=== PATIENT | male | born 1935 | race Caucasian/White ===

== ENCOUNTER 2018-06-27 13:23 | Emergency (ER) | payer MEDICARE, OTHER ==
[2018-06-27] MEDS ORDERED: BABY ASPIRIN 81 MG CHEW PO ONE (13:28)
--- NOTE | 2018-06-27 13:33 | ERPHSYRPT ---
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, relieved by SL Ntg, + nausea but no emesis, no injury Aspirin Treatment Today: 81 mg x 4, provided by ED Allergies/Adverse Reactions: Sulfa (Sulfonamide Antibiotics) Allergy (Mild, Verified 06/27/18 13:54) large hives Penicillins Adverse Reaction (Intermediate, Verified 06/27/18 13:55) Home Medications: Aspirin EC 81 mg [Ecotrin 81 mg] 81 mg PO DAILY 04/08/13 [History] Enalapril Maleate 10 mg [Vasotec 10 MG] 10 mg PO DAILY 04/08/13 [History] Ferrous Sulfate [Iron] 27 mg PO DAILY 04/08/13 [History] Simvastatin 10 mg [Zocor 10MG] 10 mg PO DAILY 04/08/13 [History] Apixaban [Eliquis] 5 mg PO 06/27/18 [History] - Review of Systems Constitutional: No Fever Eyes: No Vision Changes Ears, Nose, & Throat: No Nose Congestion Respiratory: No Dyspnea Cardiac: Chest Pain, Palpitations Abdominal/Gastrointestinal: Nausea, No Abdominal Pain Genitourinary Symptoms: No Dysuria Musculoskeletal: No Back Pain Skin: No Rash Neurological: No Focal Weakness - Past Medical History Pertinent Past Medical History: Yes Neurological History: No Pertinent History ENT History: Cataracts Cardiac History: Coronary Artery Disease, High Cholesterol, Hypertension, Other Respiratory History: No Pertinent History Endocrine Medical History: No Pertinent History Musculoskeletal History: Arthritis GI Medical History: Diverticulitis, Diverticulosis, Gallbladder Disease, Other History: No Pertinent History Psycho-Social History: No Pertinent History Male Reproductive Disorders: No Pertinent History Other Medical History: hiatal hernia. anemia - Past Surgical History Past Surgical History: Yes Neuro Surgical History: No Pertinent History Cardiac: Angioplasty, CABG, Cardiac Catheterization Respiratory: No Pertinent History Gastrointestinal: Appendectomy, Colon Resection Genitourinary: No Pertinent History Musculoskeletal: Orthopedic Surgery Male Surgical History: No Pertinent History Other Surgical History: right foot repair- crushed. Back surgery- lower lumbar - calcium deposits removed - Social History Smoking Status: Never smoker Exposure to second hand smoke: No Drug Use: none - Nursing Vital Signs Nursing Vital Signs: Initial Vital Signs Temperature 98 F 06/27/18 13:24 Pulse Rate 63 06/27/18 13:24 Respiratory Rate 18 06/27/18 13:24 Blood Pressure 140/63 06/27/18 13:24 O2 Sat by Pulse Oximetry 100 06/27/18 13:24 Pain Scale Pain Intensity 0 - Physical Exam General Appearance: no apparent distress Eye Exam: eyes nml inspection Ears, Nose, Throat Exam: moist mucous membranes Neck Exam: normal inspection Respiratory Exam: normal breath sounds Cardiovascular Exam: regular rate/rhythm Gastrointestinal/Abdomen Exam: soft, No tenderness Extremity Exam: normal range of motion, pelvis stable Neurologic Exam: alert, oriented x 3, cooperative Skin Exam: normal color, warm, dry - Course Nursing assessment & vital signs reviewed: Yes EKG Interpreted by Me: Other (atrial fib 57 no stemi) - Radiology Exams Chest X-ray Interpretation: Discussed w/ radiologist, Other (atelect or early infil) Ordered Tests: Active Orders 24 hr Category Date Time Status Pneumatic Hoist Operator STAT Care 06/27/18 13:28 Active EKG-ER Only STAT Care 06/27/18 13:28 Active IV Insertion STAT Care 06/27/18 13:28 Active Pulse Oximetry (ED) STAT Care 06/27/18 13:28 Active Regular Diet Diet 06/27/18 Dinner Active CHEST 1 VIEW (PORTABLE) Stat Exams 06/27/18 13:28 Completed CBC W DIFF Stat Lab 06/27/18 13:50 Completed CMP Stat Lab 06/27/18 13:50 Completed D-DIMER QUANTITATION Stat Lab 06/27/18 13:50 Completed PROTIME WITH INR Stat Lab 06/27/18 13:50 Completed TROPONIN Q3H Lab 06/27/18 13:50 Completed TROPONIN Q3H Lab 06/27/18 16:40 Completed TROPONIN Q3H Lab 06/27/18 19:30 Ordered TROPONIN Q3H Lab 06/27/18 22:30 Ordered TROPONIN Q3H Lab 06/28/18 01:30 Ordered Medication Summary Discontinued Medications Generic Name Dose Route Start Last Admin Trade Name Freq PRN Reason Stop Dose Admin Aspirin 324 mg 06/27/18 13:28 06/27/18 13:51 Baby Aspirin 81 Mg Chew PO 06/27/18 13:29 243 mg STAT ONE Administration Lab/Rad Data: Laboratory Result Diagrams 06/27/18 13:50 06/27/18 13:50 Laboratory Results 06/27/18 06/27/18 06/27/18 Range/Units 16:40 13:50 13:50 WBC (4.0-10.5) K/mm3 RBC (4.1-5.6) M/mm3 Hgb (12.5-18.0) gm/dl Hct (42-50) % MCV (78-100) fl MCH (26-32) pg MCHC (32-36) g/dl RDW (11.5-14.0) % Plt Count (150-450) K/mm3 MPV (6-9.5) fl Gran % (36.0-66.0) % Eos # (Auto) (0-0.5) Absolute Lymphs (auto) (1.0-4.6) Absolute Monos (auto) (0.0-1.3) Lymphocytes % (24.0-44.0) % Monocytes % (0.0-12.0) % Eosinophils % (0.00-5.0) % Basophils % (0.0-0.4) % Absolute Granulocytes (1.4-6.9) Basophils # (0-0.4) PT 21.5 H (8.83-12.87) SECONDS INR 1.84 (0.8-3.0) D-Dimer < 215 L (215-500) ng/mL Sodium (137-145) mmol/L Potassium (3.5-5.1) mmol/L Chloride (98-107) mmol/L Carbon Dioxide (22-30) mmol/L Anion Gap (5-15) MEQ/L BUN (9-20) mg/dL Creatinine (0.66-1.25) mg/dL Estimated GFR ML/MIN Glucose (74-106) mg/dL Calcium (8.4-10.2) mg/dL Total Bilirubin (0.2-1.3) mg/dL AST (17-59) U/L ALT (0-50) U/L Alkaline Phosphatase (38-126) U/L Troponin I < 0.012 < 0.012 (0.000-0.034) ng/mL Serum Total Protein (6.3-8.2) g/dL Albumin (3.5-5.0) g/dL 11/16/18 11/16/18 Range/Units 13:50 13:50 WBC 6.4 (4.0-10.5) K/mm3 RBC 4.13 (4.1-5.6) M/mm3 Hgb 12.2 L (12.5-18.0) gm/dl Hct 38.3 L (42-50) % MCV 92.7 (78-100) fl MCH 29.5 (26-32) pg MCHC 31.9 L (32-36) g/dl RDW 14.6 H (11.5-14.0) % Plt Count 180 (150-450) K/mm3 MPV 10.2 H (6-9.5) fl Gran % 72.6 H (36.0-66.0) % Eos # (Auto) 0.17 (0-0.5) Absolute Lymphs (auto) 1.05 (1.0-4.6) Absolute Monos (auto) 0.53 (0.0-1.3) Lymphocytes % 16.3 L (24.0-44.0) % Monocytes % 8.2 (0.0-12.0) % Eosinophils % 2.6 (0.00-5.0) % Basophils % 0.3 (0.0-0.4) % Absolute Granulocytes 4.67 (1.4-6.9) Basophils # 0.02 (0-0.4) PT (8.83-12.87) SECONDS INR (0.8-3.0) D-Dimer (215-500) ng/mL Sodium 139 (137-145) mmol/L Potassium 4.1 (3.5-5.1) mmol/L Chloride 102 (98-107) mmol/L Carbon Dioxide 30 (22-30) mmol/L Anion Gap 11.9 (5-15) MEQ/L BUN 21 H (9-20) mg/dL Creatinine 0.82 (0.66-1.25) mg/dL Estimated GFR > 60.0 ML/MIN Glucose 91 (74-106) mg/dL Calcium 9.2 (8.4-10.2) mg/dL Total Bilirubin 0.70 (0.2-1.3) mg/dL AST 25 (17-59) U/L ALT 14 (0-50) U/L Alkaline Phosphatase 56 (38-126) U/L Troponin I (0.000-0.034) ng/mL Serum Total Protein 7.1 (6.3-8.2) g/dL Albumin 4.0 (3.5-5.0) g/dL - Progress Progress: improved Air Movement: good Progress Note: 06/27/18 18:00 differential d/s pt as early pneumonia, pt feels improved and , serial troponin neg pt refuses hospital admission or transfer - Departure Time of Disposition: 18:01 Departure Disposition: Home Clinical Impression: Chest pain Qualifiers: Chest pain type: unspecified Qualified Code(s): R07.9 - Chest pain, unspecified Condition: Stable Critical Care Time: No Referrals: JUNG FAROOQ [Primary Care Provider] - Instructions: Palpitations (DC) Additional Instructions: see your doctor tomorrow, return at anytime, christelle, pt aware he could suddenly or become permanently disabled Prescriptions: Azithromycin [Zithromax Tri-Bryn] 500 mg PO DAILY 3 Days #3 tablet
[2018-06-27 13:51] LABS: BASOPHIL % 0.3 % (0.0-0.4); Basophil (Absolute #) 0.02 (0-0.4); Eosinophil % 2.6 % (0.00-5.0); Eosinophil (Absolute #) 0.17 (0-0.5); Granulocyte Absolute (ANC) 4.67 (1.4-6.9); Granulocytes % 72.6 % (36.0-66.0); Hematocrit 38.3 % (42-50); Hemoglobin 12.2 gm/dl (12.5-18.0); Lymphocyte (Absolute #) 1.05 (1.0-4.6); Lymphocytes % 16.3 % (24.0-44.0); Mean Cell Volume 92.7 fl (78-100); Mean Corpuscular Hemoglobin 29.5 pg (26-32); Mean Corpuscular Hgb Concent. 31.9 g/dl (32-36); Mean Platelet Volume 10.2 fl (6-9.5); Monocyte (Absolute #) 0.53 (0.0-1.3); Monocytes % 8.2 % (0.0-12.0); Platelet Count 180 K/mm3 (150-450); Red Blood Count 4.13 M/mm3 (4.1-5.6); Red Cell Distribution Width 14.6 % (11.5-14.0); White Blood Count 6.4 K/mm3 (4.0-10.5)
--- NOTE | 2018-06-27 14:01 | XRAY ---
Indication: Chest pain. Patient states current blood clot. Comparison: None Portable chest hyperinflated with bibasilar infiltrates versus atelectasis. No consolidation or large effusion. Upper lungs clear. Heart is not enlarged and demonstrates CABG surgery. Moderate size hiatal hernia. Bony thorax intact with mild osteopenia and degenerative changes. Impression: 1. Bibasilar infiltrates/atelectasis. Correlate clinically. 2. Hiatal hernia.
[2018-06-27 14:09] LABS: INR 1.84 (0.8-3.0)
[2018-06-27 14:14] LABS: ALKALINE PHOSPHATASE 56 U/L (38-126); ANION GAP 11.9 MEQ/L (5-15); BLOOD UREA NITROGEN 21 mg/dL (9-20); CHLORIDE 102 mmol/L (98-107); Calcium 9.2 mg/dL (8.4-10.2); Carbon Dioxide 30 mmol/L (22-30); Creatinine 1 0.82 mg/dL (0.66-1.25); Glucose 91 mg/dL (74-106); Potassium 4.1 mmol/L (3.5-5.1); SGOT/AST 25 U/L (17-59); SGPT/ALT 14 U/L (0-50); SODIUM 139 mmol/L (137-145); Total Protein 7.1 g/dL (6.3-8.2)
[2018-06-27 14:23] LABS: D-DIMER QUANTITATION < 215 ng/mL (215-500)
[2018-06-27 17:44] VITALS: PULSE 69
[2018-06-27 18:03] VITALS: BP 126/77; O2SAT 97
[2018-06-28] MEDS ORDERED: BABY ASPIRIN 81 MG CHEW ONE (03:32)
== END 2018-06-27 18:05 | disposition home or self-care (01) ==
LOC: ED 13:23
DX: R07.9 Chest pain, unspecified (principal); J18.9 Pneumonia, unspecified organism; I48.91 Unspecified atrial fibrillation; R11.0 Nausea; Z79.899 Other long term (current) drug therapy
CPT/HCPCS: 36000; 36415; 71045; 80053; 84484; 85025; 85379; 85610; 93005; 93041; 99284; A9270-GY

== ENCOUNTER 2018-10-23 11:52 | Day surgery (SDC) | payer MEDICARE, OTHER ==
--- NOTE | 2018-10-23 07:38 | HP ---
DATE OF SURGERY: 10/23/2018 ANTICIPATED PROCEDURE: Right inguinal herniorrhaphy. HISTORY OF PRESENT ILLNESS: The patient has a symptomatic right inguinal hernia and presents for repair. He did have cardiac clearance by Dr. Librado Decker in [place]. PAST MEDICAL HISTORY: Atrial flutter. Right foot crushed. ALLERGIES: SULFA, PENICILLIN. MEDICATIONS: Enalapril, hydrochlorothiazide. PAST SURGICAL HISTORY: Cardiac bypass. SOCIAL HISTORY: Negative. FAMILY HISTORY: Negative. REVIEW OF SYSTEMS: Cardiac disease. PHYSICAL EXAMINATION: VITAL SIGNS: Normal. CHEST: Clear. COR: Regular. ABDOMEN: Right inguinal hernia. IMPRESSION: Symptomatic right inguinal hernia. PLAN: Repair.
[~2018-10-23 11:52] MED LIST: CLINDAMYCIN-D5W 900 MG/50 ML*** 900 MG/50 ML BAG IV STA; KEFZOL 1 GM ONE; Lactated Ringers 1,000 ML IV ONE; Lactated Ringers 1,000 ML IV SCH; Sensorcaine 0.25% 10 ML ONE
[2018-10-23] MEDS ORDERED: SUBLIMAZE 100 MCG/2 ML IV ONE (11:53)
[2018-10-23] MEDS ORDERED: Decadron 4 MG INJ IV ONE (11:53)
[2018-10-23] MEDS ORDERED: Zemuron 100 MG/10 ML IV ONE (11:53)
[2018-10-23] MEDS ORDERED: Zofran 4 MG/2 ML VIAL IV ONE (11:53)
[2018-10-23] MEDS ORDERED: BRIDION 200MG/2ML IV ONE (11:53)
[2018-10-23] MEDS ORDERED: DIPRIVAN 200 MG/20 ML IV ONE (11:53)
[2018-10-23] MEDS ORDERED: Amidate 20 MG/10 ML IV ONE (11:53)
[2018-10-23 13:17] LABS: ANION GAP 11.9 MEQ/L (5-15); BLOOD UREA NITROGEN 18 mg/dL (9-20); CHLORIDE 101 mmol/L (98-107); Calcium 9.5 mg/dL (8.4-10.2); Carbon Dioxide 32 mmol/L (22-30); Creatinine 1 0.67 mg/dL (0.66-1.25); Glucose 93 mg/dL (74-106); Potassium 4.2 mmol/L (3.5-5.1); SODIUM 140 mmol/L (137-145)
[2018-10-23] MEDS ORDERED: Cleocin Phosphate IV 600 MG/4 ML ONE (16:44)
[2018-10-23] MEDS ORDERED: LEVOFLOXACIN 750MG/150ML D5W 750 MG/150 ML BAG IV ONE (18:00)
[2018-10-23] MEDS ORDERED: MORPHINE SULFATE 10 MG/ML ONE (18:08)
[2018-10-23] MEDS ORDERED: SUBLIMAZE 100 MCG/2 ML ONE (18:08)
[2018-10-23] MEDS ORDERED: Zofran 4 MG/2 ML VIAL ONE (18:10)
[2018-10-23] MEDS ORDERED: TORAdol 30 mg Injection ONE (18:39)
[2018-10-23] MEDS ORDERED: DILAUDID 2 MG INJECTION ONE (18:48)
[2018-10-23] MEDS ORDERED: MORPHINE SULFATE 2 MG INJ IV PRN (20:11)
[2018-10-23] MEDS ORDERED: Zofran 4 MG/2 ML VIAL IV PRN (20:12)
[2018-10-24] MEDS: NORCO 5/325 MG PO PRN ×2 (04:45→09:18)
[2018-10-24] MEDS ORDERED: Lactated Ringers 1,000 ML IV SCH (05:00)
[2018-10-24 08:25] VITALS: BP 123/58; PULSE 62; O2SAT 96
--- NOTE | 2018-10-24 08:44 | OP ---
SURGERY DATE/TIME: 10/23/2018 1715 PREOPERATIVE DIAGNOSIS: Right inguinal hernia. POSTOPERATIVE DIAGNOSIS: Right inguinal hernia, indirect. PROCEDURE: Right inguinal herniorrhaphy with mesh. SURGEON: Jacobo Wells M.D. ANESTHESIA: General endotracheal tube, Moi James CRNA. COMPLICATIONS: None. ESTIMATED BLOOD LOSS: None. DRAINS: None. CONDITION: Stable. INDICATION: A patient with symptomatic hernia. Marked preoperatively. DESCRIPTION OF PROCEDURE: Taken to surgery. General anesthetic. Routine prep and drape. Time out performed. 0.25% Marcaine infiltrated. Curvilinear incision. External oblique opened. A 2 inch indirect hernia with lipoma of the cord was taken. The cord had been skeletonized. The floor was repaired with a 1x4 mesh in a Bran's ligament-type fashion throughout. Internal ring was one clamp tight. Hemostasis satisfactory. External oblique closed with 0 Vicryl. Leilani fascia closed with 3-0 Vicryl, subcu 4-0 Vicryl. Sterile dressing applied. The patient tolerated the procedure satisfactorily.
[2018-10-24] MEDS ORDERED: Zocor 10MG PO SCH (10:00)
[2018-10-24] MEDS ORDERED: Vasotec 10 MG PO SCH (10:00)
[2018-10-24] MEDS ORDERED: FERROUS SULFATE 27 MG PO SCH (10:00)
[2018-10-24] MEDS ORDERED: FEOSOL 325 MG PO SCH (10:00)
[2018-10-24] MEDS ORDERED: ECOTRIN 81 MG PO SCH (10:00)
[2018-10-24] MEDS ORDERED: AZITHROMYCIN 500 MG PO SCH (10:00)
[2018-10-24] MEDS ORDERED: ELIQUIS 2.5 MG TABLET PO SCH (10:00)
[2018-10-24] MEDS ORDERED: Zithromax 250 MG TABLET PO SCH (10:00)
[2018-10-24] MEDS ORDERED: NON-FORMULARY ITEM (Apixaban [Eliquis] 5 MG) PO SCH (10:00)
== END 2018-10-24 10:15 | disposition home or self-care (01) ==
LOC: SDC 11:52 → MED SURG 19:44 → SDC 10-24 10:15
PROVIDERS: ATTEND Surgery
DX: K40.90 Unilateral inguinal hernia, without obstruction or gangrene, not specified as recurrent (principal); Z79.899 Other long term (current) drug therapy; I25.10 Atherosclerotic heart disease of native coronary artery without angina pectoris; Z95.1 Presence of aortocoronary bypass graft
CPT/HCPCS: 36415; 80048; 88302; 93005; 99100; C1781; J0690; J1100; J1170; J1885; J1956; J2270; J2405; J2704; J3010; A9270-GY